=== PATIENT | female | born 1980 | race Caucasian/White ===

== ENCOUNTER 2021-09-05 11:46 | Emergency (ER) | payer OTHER ==
[2021-09-05 12:06] VITALS: RESP 18
[2021-09-05] MEDS ORDERED: PHENAZOPYRIDINE 100 MG TAB PO STA (12:25)
--- NOTE | 2021-09-05 12:28 | ED ---
General Adult HPI - General Chief complaint: Urogenital Stated complaint: blood in urine Time Seen by Provider: 09/05/21 12:15 Source: patient, RN notes reviewed, old records reviewed Mode of arrival: ambulatory Limitations: no limitations - History of Present Illness Initial comments: 41-year-old female presents to the emergency room with complaints of dysuria that started this morning. She states that she is also having some hematuria. She denies any vaginal bleeding states that it is definitely coming from her urethra. She also states it colon when she urinates with just small amounts. She does have a history of anxiety, fibromyalgia, cholecystectomy and hysterectomy. Denies any fevers, no nausea vomiting diarrhea no flank pain. -: days(s) (1) Location: abdomen (suprapubic) Radiation: non-radiation Quality: burning, constant, other (pressure) Improves with: none Associated Symptoms: denies other symptoms - Related Data Previous Rx's Medication Instructions Recorded Cephalexin [Keflex] 500 mg PO Q8HR 7 Days #21 cap 09/05/21 Allergies Allergy/AdvReac Type Severity Reaction Status Date / Time buspirone [From BuSpar] Allergy Hallucinati Verified 09/05/21 12:06 ons Review of Systems ROS Statement: Those systems with pertinent positive or pertinent negative responses have been documented in the HPI. ROS Other: All systems not noted in ROS Statement are negative. Past Medical History Past Medical History: Fibromyalgia History of Any Multi-Drug Resistant Organisms: None Reported Past Surgical History: Cholecystectomy, Hysterectomy, Orthopedic Surgery Past Psychological History: No Psychological Hx Reported, Panic Disorder Smoking Status: Never smoker Past Alcohol Use History: None Reported Past Drug Use History: None Reported General Exam Limitations: no limitations General appearance: alert, in no apparent distress Head exam: Present: atraumatic Eye exam: Absent: scleral icterus, conjunctival injection Respiratory exam: Present: normal lung sounds bilaterally. Absent: respiratory distress, accessory muscle use Cardiovascular Exam: Present: tachycardia GI/Abdominal exam: Present: soft, tenderness (Suprapubic). Absent: distended, guarding, rebound, rigid Extremities exam: Present: full ROM, normal capillary refill. Absent: pedal edema Back exam: Absent: tenderness, CVA tenderness (R), CVA tenderness (L), rash noted Neurological exam: Present: alert, oriented X3, normal gait Psychiatric exam: Present: anxious Skin exam: Present: warm, dry, intact, abrasion (First-degree sunburn to chest and arms and shoulders and upper back). Absent: cyanosis, diaphoretic, pallor Course Vital Signs 09/05/21 09/05/21 11:58 13:40 Temperature 98.0 F 98.2 F Pulse Rate 105 H 91 Respiratory 18 18 Rate Blood Pressure 134/88 124/82 O2 Sat by Pulse 98 100 Oximetry Medical Decision Making - Medical Decision Making Patient with budding yeast and evidence of urinary tract infection. Consistent with patient's dysuria symptoms that started yesterday. She denies any fevers or flank pain. No nausea or vomiting. She was given Diflucan, keflex and pyridium in the emergency room. She will be prescribed antibiotics directed to follow up with her primary care doctor. She is agreeable to this plan of care. - Lab Data Lab Results 09/05/21 Range/Units 12:10 Urine Color Red Urine Appearance Turbid H (Clear) Urine pH 5.5 (5.0-8.0) Ur Specific [place] 1.028 (1.001-1.035) Urine Protein 2+ H (Negative) Urine Glucose (UA) Negative (Negative) Urine Ketones 1+ H (Negative) Urine Blood Large H (Negative) Urine Nitrite Negative (Negative) Urine Bilirubin Negative (Negative) Urine Urobilinogen <2.0 (<2.0) mg/dL Ur Leukocyte Esterase Large H (Negative) Urine RBC >182 H (0-5) /hpf Urine WBC >182 H (0-5) /hpf Urine WBC Clumps Many H (None) /hpf Ur Squamous Epith Cells 6 H (0-4) /hpf Urine Bacteria Many H (None) /hpf Urine Mucus Many H (None) /hpf Urine Yeast (Budding) Many H (None) /hpf Disposition Clinical Impression: Urinary tract infection, Hemorrhagic cystitis Disposition: HOME SELF-CARE Condition: Good Instructions (If sedation given, give patient instructions): Urinary Tract Infection in Women (ED) Additional Instructions: Increase your fluid intake and take antibiotics as prescribed. Follow-up with the primary care doctor next week for reevaluation of your urine. Return to the emergency room if any new or concerning symptoms including fevers, back pain or persistent nausea vomiting. Prescriptions: Cephalexin [Keflex] 500 mg PO Q8HR 7 Days #21 cap Is patient prescribed a controlled substance at d/c from ED?: No Referrals: DIMITRIS TYALOR MD [Primary Care Provider] - 1-2 days Time of Disposition: 13:30
[2021-09-05 12:42] LABS: Appearance,Urine Turbid (Clear); Bacteria,Urine Many /hpf; Bilirubin,Urine Negative (Negative); Blood,Urine Large (Negative); Budding Yeast,Urine Many /hpf; Color,Urine Red; Glucose,Urine (UA) Negative (Negative); Ketones,Urine 1+ (Negative); Leukocyte Esterase,Urine Large (Negative); Mucus,Urine Many /hpf; Nitrite,Urine Negative (Negative); PH, Urine 5.5 (5.0-8.0); Protein,Urine 2+ (Negative); RBC,Urine >182 /hpf (0-5); Squamous Epithelial Cell,Urine 6 /hpf (0-4); Urobilinogen,Urine <2.0 mg/dL (<2.0); WBC,Urine >182 /hpf (0-5)
[2021-09-05 12:47] LABS: Specific Gravity,Urine 1.028 (1.001-1.035)
[2021-09-05] MEDS ORDERED: FLUCONAZOLE 150 MG TAB PO STA (13:28)
[2021-09-05] MEDS ORDERED: CEPHALEXIN 500 MG CAP PO STA (13:28)
[2021-09-05 13:51] VITALS: BP 124/82; PULSE 91; TEMP 98.2
== END 2021-09-05 13:40 | disposition home or self-care (01) ==
LOC: EC 11:46
DX: N39.0 Urinary tract infection, site not specified (principal); F41.0 Panic disorder [episodic paroxysmal anxiety]; Z88.8 Allergy status to other drugs, medicaments and biological substances
CPT/HCPCS: 81001; 87077; 87086; 87186; 99283

== ENCOUNTER 2022-02-04 18:40 | Emergency (ER) | payer OTHER ==
[2022-02-04] MEDS ORDERED: HYDROcodone/APAP 5-325MG 1 EACH TAB PO STA (20:43)
[2022-02-04] MEDS ORDERED: LIDOCAINE 1% INJ 10MG/ML (30 ML VIAL-PF) SQ ONE (20:43)
[2022-02-04] MEDS ORDERED: BACITRACIN OINT 1 EACH PACKET TOPICAL ONE (20:43)
--- NOTE | 2022-02-04 20:48 | ED ---
General Adult HPI - General Chief complaint: Wound/Laceration Stated complaint: Hand Lac Time Seen by Provider: 02/04/22 20:07 Source: patient, RN notes reviewed Mode of arrival: ambulatory Limitations: no limitations - History of Present Illness Initial comments: 41-year-old female presents to the emergency Department with complaints of injury to the right index finger. Patient states she was opening a can of corn when she sliced her finger on the lid. Reports direct pressure was applied in order to control bleeding. States she thinks she is in need of stitches. Tetanus shot is up-to-date. Reports pain with palpation and movement. No loss of sensation or range of motion. No other complaints or injuries at this time. - Related Data Previous Rx's Medication Instructions Recorded Cephalexin [Keflex] 500 mg PO Q8HR 7 Days #21 cap 09/05/21 Allergies Allergy/AdvReac Type Severity Reaction Status Date / Time buspirone [From BuSpar] Allergy Hallucinati Verified 02/04/22 18:58 ons Review of Systems ROS Statement: Those systems with pertinent positive or pertinent negative responses have been documented in the HPI. ROS Other: All systems not noted in ROS Statement are negative. Past Medical History Past Medical History: Fibromyalgia History of Any Multi-Drug Resistant Organisms: None Reported Past Surgical History: Cholecystectomy, Hysterectomy, Orthopedic Surgery Past Psychological History: No Psychological Hx Reported, Anxiety, Panic Disorder Smoking Status: Never smoker Past Alcohol Use History: None Reported Past Drug Use History: None Reported General Exam Limitations: no limitations General appearance: alert, in no apparent distress Respiratory exam: Absent: respiratory distress Cardiovascular Exam: Present: regular rate, normal rhythm Neurological exam: Present: alert, oriented X3, CN II-XII intact Psychiatric exam: Present: normal affect, normal mood Skin exam: Present: warm, dry, normal color Expanded Type of lesion: Present: laceration (1cm linear laceration radial aspect of the 2nd digit, right hand. Flexion and extension intact. No loss of sensation.) Course Vital Signs 02/04/22 02/04/22 18:56 21:34 Temperature 97.9 F 97.8 F Pulse Rate 91 82 Respiratory 20 16 Rate Blood Pressure 121/75 122/73 O2 Sat by Pulse 99 98 Oximetry Procedures - Laceration Laceration #1 Consent Obtained: verbal consent Indication: laceration Site: hand (2nd digit, right hand) Size (cm): 1 Description: linear Depth: simple, single layer Anesthetic Used: lidocaine 1% Anesthesia Technique: nerve block Pre-repair: wound explored, irrigated extensively, deep structures intact Type of Sutures: nylon Size of Sutures: 5-0 Number of Sutures: 2 Technique: simple, interrupted Patient Tolerated Procedure: well, no complications Additional Comments: Wound care discussed with patient. Instructed to follow-up in 72 hours for recheck. Encouraged to have sutures removed in 7-10 days. Return parameters discussed in detail. Patient verbalizes understanding and agrees with plan. Medical Decision Making - Medical Decision Making This is a pleasant 41-year-old female who presents to the emergency department for evaluation of superficial laceration to the second digit and. Patient states she cut her on a can of vegetables. Upon exam there is a 1 centimeter laceration to the radial surface of the second digit of the right hand. Flexion and extension intact. No loss of sensation. Tetanus up to date. Digital block was performed and 2 simple interrupted sutures were placed with good alignment. Bacitracin dressing applied. Tolerated procedure well. She is instructed on wound care including return for suture removal in 7-10 days. Return parameters discussed in detail. Patient verbalizes understanding and agrees with this plan. Attending: Dirk Link Clinical Impression: Finger laceration Disposition: HOME SELF-CARE Condition: Stable Instructions (If sedation given, give patient instructions): Care For Your Stitches (ED), Laceration (ED) Additional Instructions: Gently cleanse the wound twice daily with mild soap and water. Apply antibiotic ointment to wound and keep covered when out of the house. Monitor carefully for signs of infection including increased redness, foul smelling drainage, or fever. Have sutures removed in 7-10 days. Return to the emergency department with any new, worsening, or concerning symptoms. Is patient prescribed a controlled substance at d/c from ED?: No Referrals: Nonstaff,Physician [Primary Care Provider] - 1-2 days Time of Disposition: 21:26
[2022-02-04 21:35] VITALS: BP 122/73; PULSE 82; RESP 16; TEMP 97.8
== END 2022-02-04 21:34 | disposition home or self-care (01) ==
LOC: EC 18:40
DX: S61.210A Laceration without foreign body of right index finger without damage to nail, initial encounter (principal); Z88.8 Allergy status to other drugs, medicaments and biological substances; W26.8XXA Contact with other sharp object(s), not elsewhere classified, initial encounter
CPT/HCPCS: 99282; 12001; J2001

== ENCOUNTER 2022-07-24 01:02 | Emergency (ER) | payer OTHER ==
[2022-07-24 01:22] VITALS: TEMP 97.8
[2022-07-24] MEDS ORDERED: PROCHLORPERAZINE INJ 10 MG/2 ML VIAL IVP STA (02:19)
[2022-07-24] MEDS ORDERED: SODIUM CHLORIDE 0.9% 1,000 ML IV ONE (02:19)
[2022-07-24] MEDS ORDERED: diphenhydrAMINE 50 MG CAP PO STA (02:19)
[2022-07-24] MEDS ORDERED: KETOROLAC 15 MG/ML 1 ML VIAL IVP STA (02:19)
[2022-07-24] MEDS ORDERED: MORPHINE SULFATE 2 MG/ML SYRINGE IVP ONE (03:24)
--- NOTE | 2022-07-24 03:33 | ED ---
General Adult HPI - General Chief complaint: Headache Stated complaint: Migraine, Back Pain Time Seen by Provider: 07/24/22 01:35 Source: patient, RN notes reviewed Mode of arrival: ambulatory Limitations: no limitations - History of Present Illness Initial comments: 42-year-old female with a past medical history significant for fibromyalgia and migraines presents to the emergency department with a chief complaint of headache and generalized body aches. Patient reports worsening bodyaches and headache that started earlier today. 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 She reports that she has been tired taking Tylenol Motrin and Topamax without symptomatic relief. She denies any fevers, chills, chest, vomiting, pain, shortness of breath, abdominal pain, diarrhea. She reports that her headache feels like her regular migraine headaches. - Related Data Previous Rx's Medication Instructions Recorded Cephalexin [Keflex] 500 mg PO Q8HR 7 Days #21 cap 09/05/21 Allergies Allergy/AdvReac Type Severity Reaction Status Date / Time buspirone [From BuSpar] Allergy Hallucinati Verified 07/24/22 01:19 ons methadone Allergy Unknown Verified 07/24/22 01:19 Review of Systems ROS Statement: Those systems with pertinent positive or pertinent negative responses have been documented in the HPI. ROS Other: All systems not noted in ROS Statement are negative. Past Medical History Past Medical History: Fibromyalgia History of Any Multi-Drug Resistant Organisms: None Reported Past Surgical History: Cholecystectomy, Hysterectomy, Orthopedic Surgery Past Psychological History: No Psychological Hx Reported, Anxiety, Panic Disorder Smoking Status: Never smoker Past Alcohol Use History: None Reported Past Drug Use History: None Reported General Exam - General Exam Comments Initial Comments: General: Alert, in no acute distress Head: atraumatic normocephalic. Eyes PERRL, EOMI intact, mucous membranes moist Respiratory: Lungs clear to auscultation bilaterally Cardiovascular: Heart rate regular rate and rhythm Abdominal: Soft without guarding or rebound Extremities: Normal inspection with full range of motion and normal capillary refill Neuroogic: alert and oriented 3, CN II-XII intact, able to ambulate with steady gait Skin: warm dry and intact with normal color Limitations: no limitations Course Vital Signs 07/24/22 07/24/22 01:19 04:31 Temperature 97.8 F Pulse Rate 77 81 Respiratory 18 16 Rate Blood Pressure 123/80 117/70 O2 Sat by Pulse 98 Oximetry Medical Decision Making - Medical Decision Making Was pt. sent in by a medical professional or institution ([employer] Treadwell, SENIOR MEDICAL BILLING SPECIALIST, urgent care, hospital, or halfway...) When possible be specific @ -[No] Did you speak to anyone other than the patient for history (EMS, parent, family, police, friend...)? What history was obtained from this source @ -[No] Did you review nursing and triage notes (agree or disagree)? Why? @ -[I reviewed and agree with nursing and triage notes] Were old charts reviewed (outside hosp., previous admission, EMS record, old EKG, old radiological studies, urgent care reports/EKG's, halfway records)? Report findings @ -[No old charts were reviewed] Differential Diagnosis (chest pain, altered mental status, abdominal pain women, abdominal pain men, vaginal bleeding, weakness, fever, dyspnea, syncope, headache, dizziness, GI bleed, back pain, seizure, CVA, palpatations, mental health, musculoskeletal)? @ -[not applicable] EKG interpreted by me (3pts min.). @ -[As above] X-rays interpreted by me (1pt min.). @ -[None done] CT interpreted by me (1pt min.). @ -[None done] U/S interpreted by me (1pt. min.). @ -[None done] What testing was considered but not performed or refused? (CT, X-rays, U/S, labs)? Why? @ -[None] What meds were considered but not given or refused? Why? @ -[None] Did you discuss the management of the patient with other professionals (professionals i.e. [employer] Treadwell, SENIOR MEDICAL BILLING SPECIALIST, lab, RT, psych nurse, social service director, heliarc welder, teacher, product safety officer, bottle caser)? Give summary @ -[No] Was smoking cessation discussed for >3mins.? @ -[No] Was critical care preformed (if so, how long)? @ -[No] Were there social determinants of health that impacted care today? How? (Homelessness, low income, unemployed, alcoholism, drug addiction, transportation, low edu. Level, literacy, decrease access to med. care, custodial, rehab)? @ -[No] Was there de-escalation of care discussed even if they declined (Discuss DNR or withdrawal of care, Hospice)? DNR status @ -[No] What co-morbidities impacted this encounter? (DM, HTN, Smoking, COPD, CAD, Cancer, CVA, ARF, Chemo, Hep., AIDS, mental health diagnosis, sleep apnea, morbid obesity)? @ -[None] Was patient admitted / discharged? Hospital course, mention meds given and route, prescriptions, significant lab abnormalities, going to OR and other pertinent info. @ -Discharged. This is a 42-year-old female who presents the emergency department with headache. Patient had a thorough history and physical exam performed on the ED. This will exam is essentially unremarkable heart rate regular rate and rhythm, lungs clear to auscultation bilaterally, abdomen is soft and nontender. Patient able to tolerate by mouth during her course in the ED. I discussed results in detail with the patient verbalized understanding and all questions were addressed. Patient was given toradol, morphine, compazine, benadryl with mild symptomatically relief. She return precautions were discussed at length. She was discharged in stable condition, Case discussed with Dr. Roberts, who agrees with plan of care. Undiagnosed new problem with uncertain prognosis? @ -[No] Drug Therapy requiring intensive monitoring for toxicity (Heparin, Nitro, Insulin, Cardizem)? @ -[No] Were any procedures done? @ -[No] Diagnosis/symptom? @ -Headache - hx of migraines Acute, or Chronic, or Acute on Chronic? @ -acute Uncomplicated (without systemic symptoms) or Complicated (systemic symptoms)? @ -uncomplicated Side effects of treatment? @ -[No] Exacerbation, Progression, or Severe Exacerbation? @ -[No] Poses a threat to life or bodily function? How? (Chest pain, [place], [place], pneumonia, PE, COPD, DKA, ARF, appy, cholecystitis, CVA, Diverticulitis, Homicidal, Suicidal, threat to staff... and all critical care pts) @ -low likelihood Disposition Clinical Impression: Headache Disposition: HOME SELF-CARE Condition: Stable Instructions (If sedation given, give patient instructions): Acute Headache (ED) Additional Instructions: Please return to the emergency department if symptoms worsen or persist Is patient prescribed a controlled substance at d/c from ED?: No Referrals: Nonstaff,Physician [Primary Care Provider] - 1-2 days Time of Disposition: 04:14
[2022-07-24 04:33] VITALS: BP 117/70; PULSE 81; RESP 16
== END 2022-07-24 04:33 | disposition home or self-care (01) ==
LOC: EC 01:02
DX: R51.9 Headache, unspecified (principal); Z86.69 Personal history of other diseases of the nervous system and sense organs; Z88.8 Allergy status to other drugs, medicaments and biological substances
CPT/HCPCS: 99283; 96374; 96375 ×2; 96361; J0780; J2270; J1885

== ENCOUNTER 2023-02-05 16:14 | Emergency (ER) | payer OTHER ==
--- NOTE | 2023-02-05 16:39 | ED ---
General Adult HPI - General Source: patient, RN notes reviewed Mode of arrival: ambulatory Limitations: no limitations <Mikki Trinidad - Last Filed: 02/05/23 16:38> <Brice Barcenas - Last Filed: 02/05/23 19:02> - General Chief complaint: Upper Respiratory Infection Stated complaint: sob,chest congestion Time Seen by Provider: 02/05/23 16:38 - History of Present Illness Initial comments: 42-year-old female presenting with chief complaint of "I think I have Covid". Patient admits to cough, shortness of breath, and body aches. (Mikki Trinidad) Patient presents to the ED complaining of having a cough, congestion, diffuse body aches and malaise for the past 3 days or so. Patient states that she developed a fever today. Patient also admits to having mild dyspnea. Patient states that she took a dose of Tylenol just prior to coming to the ED today. Patient denies known sick contact, headache, focal neuro deficit, neck pain or stiffness, sore throat, chest pain, hemoptysis, palpitations, dizziness, abdominal pain, nausea/vomiting/diarrhea, dysuria or urinary symptoms, leg or calf swelling or pain, or any other symptoms or complaints. (Brice Barcenas) - Related Data Previous Rx's Medication Instructions Recorded Cephalexin [Keflex] 500 mg PO Q8HR 7 Days #21 cap 09/05/21 Allergies Allergy/AdvReac Type Severity Reaction Status Date / Time buspirone [From BuSpar] Allergy Hallucinati Verified 02/05/23 16:41 ons methadone Allergy Unknown Verified 02/05/23 16:41 Review of Systems ROS Other: All systems not noted in ROS Statement are negative. <Mikki Trinidad - Last Filed: 02/05/23 16:38> ROS Other: All systems not noted in ROS Statement are negative. <Brice Barcenas - Last Filed: 02/05/23 19:02> ROS Statement: Those systems with pertinent positive or pertinent negative responses have been documented in the HPI. Past Medical History Past Medical History: Fibromyalgia History of Any Multi-Drug Resistant Organisms: None Reported Past Surgical History: Cholecystectomy, Hysterectomy, Orthopedic Surgery Past Psychological History: No Psychological Hx Reported, Anxiety, Panic Disorder Smoking Status: Never smoker Past Alcohol Use History: None Reported Past Drug Use History: None Reported <Mikki Trinidad - Last Filed: 02/05/23 16:38> General Exam <Mikki Trinidad - Last Filed: 02/05/23 16:38> Limitations: no limitations General appearance: alert, in no apparent distress Head exam: Present: normocephalic Eye exam: Present: normal appearance ENT exam: Present: normal oropharynx, mucous membranes moist Neck exam: Present: other (No nuchal rigidity; trachea is in midline). Absent: tenderness, meningismus Respiratory exam: Present: normal lung sounds bilaterally. Absent: respiratory distress, wheezes, rales, rhonchi, stridor Cardiovascular Exam: Present: normal rhythm, tachycardia, normal heart sounds, other (Normal radial pulses bilaterally) GI/Abdominal exam: Present: soft. Absent: tenderness, guarding Extremities exam: Absent: tenderness, pedal edema, calf tenderness Neurological exam: Present: alert, oriented X3 Psychiatric exam: Present: normal affect Skin exam: Present: warm, dry, intact, normal color <Brice Barcenas - Last Filed: 02/05/23 19:02> - General Exam Comments Initial Comments: Visual Physical Exam Vital signs reviewed General: Well-appearing, nontoxic, no acute distress. Head: Normocephalic, atraumatic Eyes: PERRLA, EOMI ENT: Airway patent Chest: Nonlabored breathing Skin: No visual rash, normal skin tone Neuro: Alert and oriented 3 Musculoskeletal: No gross abnormalities (Mikki Trinidad) Course Vital Signs 02/05/23 16:37 Temperature 99.4 F Pulse Rate 122 H Respiratory 18 Rate Blood Pressure 109/79 O2 Sat by Pulse 99 Oximetry Medical Decision Making <Brice Barcenas - Last Filed: 02/05/23 19:02> - Medical Decision Making Was pt. sent in by a medical professional or institution (, PA, BATTERY CONTAINER TESTER ALUMINUM, urgent care, hospital, or custodial...) When possible be specific @ -No Did you speak to anyone other than the patient for history (EMS, parent, family, police, friend...)? What history was obtained from this source @ -No Did you review nursing and triage notes (agree or disagree)? Why? @ -I reviewed and agree with nursing and triage notes Were old charts reviewed (outside hosp., previous admission, EMS record, old EKG, old radiological studies, urgent care reports/EKG's, custodial records)? Report findings @ -No old charts were reviewed Differential Diagnosis (chest pain, altered mental status, abdominal pain women, abdominal pain men, vaginal bleeding, weakness, fever, dyspnea, syncope, headache, dizziness, GI bleed, back pain, seizure, CVA, palpatations, mental health, musculoskeletal)? @ -Fever, upper respiratory infection, viral illness, Covid, influenza, bronchitis, pneumonia, RSV, asthma, bronchospasm, COPD EKG interpreted by me (3pts min.). @ -As above X-rays interpreted by me (1pt min.). @ -Chest x-ray was reviewed myself and shows no acute abnormality. I agree with the radiologist's interpretation as above. CT interpreted by me (1pt min.). @ -None done U/S interpreted by me (1pt. min.). @ -None done What testing was considered but not performed or refused? (CT, X-rays, U/S, labs)? Why? @ -None What meds were considered but not given or refused? Why? @ -None Did you discuss the management of the patient with other professionals (professionals i.e. , PA, BATTERY CONTAINER TESTER ALUMINUM, lab, RT, psych nurse, manager social media, military lawyer, teacher, environmental protection officer, hospice case manager)? Give summary @ -No Was smoking cessation discussed for >3mins.? @ -No Was critical care preformed (if so, how long)? @ -No Were there social determinants of health that impacted care today? How? (Homelessness, low income, unemployed, alcoholism, drug addiction, transportation, low edu. Level, literacy, decrease access to med. care, alf, rehab)? @ -No Was there de-escalation of care discussed even if they declined (Discuss DNR or withdrawal of care, Hospice)? DNR status @ -No What co-morbidities impacted this encounter? (DM, HTN, Smoking, COPD, CAD, Cancer, CVA, ARF, Chemo, Hep., AIDS, mental health diagnosis, sleep apnea, morbid obesity)? @ -None Was patient admitted / discharged? Hospital course, mention meds given and route, prescriptions, significant lab abnormalities, going to OR and other pertinent info. @ -She is breathing comfortably in the ED with clear breath sounds bilaterally. Patient's chest x-ray is unremarkable. Patient's viral studies are negative. I suspect that the patient's symptoms are likely due to a viral upper respiratory infection. Will discharge patient home at this time with strict return instructions provided. Patient was instructed to follow up closely with her primary care provider. Patient was also counseled about isolation precautions, and she was provided with a work excuse note. Patient was counseled about fever control and upper respiratory infections, and she was clearly explained return and follow-up instructions. Patient feels comfortable with this plan. Undiagnosed new problem with uncertain prognosis? @ -No Drug Therapy requiring intensive monitoring for toxicity (Heparin, Nitro, Insulin, Cardizem)? @ -No Were any procedures done? @ -No Diagnosis/symptom? @ -Viral upper respiratory infection Acute, or Chronic, or Acute on Chronic? @ -Acute Uncomplicated (without systemic symptoms) or Complicated (systemic symptoms)? @ -default Side effects of treatment? @ -No Exacerbation, Progression, or Severe Exacerbation? @ -No Poses a threat to life or bodily function? How? (Chest pain, [place], [place], pneumonia, PE, COPD, DKA, ARF, appy, cholecystitis, CVA, Diverticulitis, Homicidal, Suicidal, threat to staff... and all critical care pts) @ -No (Brice Barcenas) - Lab Data Lab Results 02/05/23 Range/Units 16:42 Influenza Type A (PCR) Not Detected (Not Detectd) Influenza Type B (PCR) Not Detected (Not Detectd) RSV (PCR) Not Detected (Not Detectd) SARS-CoV-2 (PCR) Not Detected (Not Detectd) - Radiology Data Chest x-ray: No acute cardiopulmonary disease/process. (Brice Barcenas) Disposition <Mikki Trinidad - Last Filed: 02/05/23 16:38> Is patient prescribed a controlled substance at d/c from ED?: No Time of Disposition: 18:59 <Brice Barcenas - Last Filed: 02/05/23 19:02> Clinical Impression: Acute febrile illness, Upper respiratory infection Disposition: HOME SELF-CARE Condition: Stable Instructions (If sedation given, give patient instructions): Fever in Adults (ED), Upper Respiratory Infection (ED) Additional Instructions: Return to the ER immediately should you develop increased shortness of breath/trouble breathing, feeling dizzy or faint, or any significant pain, or new or worsening symptoms. Follow up closely with your primary care provider. Referrals: Rebecca Quinonez NPC [Primary Care Provider] - 1-2 days
[2023-02-05 16:48] VITALS: BP 109/79; PULSE 122; RESP 18; TEMP 99.4
--- NOTE | 2023-02-05 16:58 | XR ---
EXAMINATION TYPE: XR chest 2V DATE OF EXAM: 02/05/2023 4:52 PM CLINICAL INDICATION:Female, 42 years old with history of cough; [facility] COMPARISON: None. TECHNIQUE: XR chest 2V Frontal and lateral views of the chest. FINDINGS: Lungs/Pleura: There is no evidence of pleural effusion, focal consolidation, or pneumothorax. Pulmonary vascularity: Unremarkable. Heart/mediastinum: Cardiomediastinal silhouette is unremarkable. Musculoskeletal: No acute osseous pathology. IMPRESSION: No acute cardiopulmonary disease/process.
== END 2023-02-05 19:38 | disposition home or self-care (01) ==
LOC: EC 16:14
DX: J06.9 Acute upper respiratory infection, unspecified (principal); Z90.49 Acquired absence of other specified parts of digestive tract; Z88.8 Allergy status to other drugs, medicaments and biological substances; Z20.822 Contact with and (suspected) exposure to COVID-19; Z86.59 Personal history of other mental and behavioral disorders
CPT/HCPCS: 71046; 87636; 99283

== ENCOUNTER 2023-03-23 15:14 | Emergency (ER) | payer OTHER ==
--- NOTE | 2023-03-23 16:15 | ED ---
URI HPI - General Chief Complaint: Upper Respiratory Infection Stated Complaint: GALILEA Time Seen by Provider: 03/23/23 16:14 Source: patient Mode of arrival: ambulatory Limitations: no limitations - History of Present Illness Initial Comments: 43-year-old female presenting with chief complaint of cough and shortness of breath. Patient states that over the last 2 months she has been diagnosed with Covid, bronchitis, and pneumonia. 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 Denies chest pain or palpita tions. Denies nausea, vomiting, abdominal pain, diarrhea. No fevers or chills. She was advised to report to the ER by her PCP as she has been on multiple courses of antibiotics and steroids. - Related Data Previous Rx's Medication Instructions Recorded Cephalexin [Keflex] 500 mg PO Q8HR 7 Days #21 cap 09/05/21 Albuterol Sulfate [Albuterol 1 puff PO Q4-6H #8.5 gm 03/23/23 Sulfate Hfa] predniSONE [Deltasone] 60 mg PO DAILY 5 Days #15 tab 03/23/23 Allergies Allergy/AdvReac Type Severity Reaction Status Date / Time buspirone [From BuSpar] Allergy Hallucinati Verified 03/23/23 16:13 ons methadone Allergy Unknown Verified 03/23/23 16:13 Review of Systems ROS Statement: Those systems with pertinent positive or pertinent negative responses have been documented in the HPI. ROS Other: All systems not noted in ROS Statement are negative. Past Medical History Past Medical History: Fibromyalgia History of Any Multi-Drug Resistant Organisms: None Reported Past Surgical History: Cholecystectomy, Hysterectomy, Orthopedic Surgery Past Psychological History: No Psychological Hx Reported, Anxiety, Panic Disorder Smoking Status: Never smoker Past Alcohol Use History: None Reported Past Drug Use History: None Reported General Exam - General Exam Comments Initial Comments: Visual Physical Exam Vital signs reviewed General: Well-appearing, nontoxic, no acute distress. Head: Normocephalic, atraumatic Eyes: PERRLA, EOMI ENT: Airway patent Chest: Nonlabored breathing Skin: No visual rash, normal skin tone Neuro: Alert and oriented 3 Musculoskeletal: No gross abnormalities Limitations: no limitations General appearance: alert, in no apparent distress Head exam: Present: atraumatic, normocephalic Eye exam: Present: normal appearance, EOMI Neck exam: Present: normal inspection Respiratory exam: Present: wheezes (Slight expiratory wheezes heard on auscultation). Absent: respiratory distress, rales, rhonchi, stridor Cardiovascular Exam: Present: regular rate, normal rhythm, normal heart sounds. Absent: systolic murmur, diastolic murmur, rubs, gallop, clicks Neurological exam: Present: alert, oriented X3 Psychiatric exam: Present: normal affect, normal mood Skin exam: Present: warm, dry Course Vital Signs 03/23/23 03/23/23 03/23/23 16:11 19:28 19:30 Temperature 98.0 F Pulse Rate 67 67 Respiratory 16 20 Rate Blood Pressure 132/89 O2 Sat by Pulse 96 Oximetry 03/23/23 03/23/23 19:37 20:10 Temperature 98.0 F Pulse Rate 67 76 Respiratory 20 Rate Blood Pressure 136/58 O2 Sat by Pulse 98 Oximetry Medical Decision Making - Medical Decision Making Was pt. sent in by a medical professional or institution (, PA, RECTIFIER OPERATOR, urgent care, hospital, or usp...) When possible be specific @ -No Did you speak to anyone other than the patient for history (EMS, parent, family, police, friend...)? What history was obtained from this source @ -No Did you review nursing and triage notes (agree or disagree)? Why? @ -I reviewed and agree with nursing and triage notes Were old charts reviewed (outside hosp., previous admission, EMS record, old EKG, old radiological studies, urgent care reports/EKG's, usp records)? Report findings @ -No old charts were reviewed Differential Diagnosis (chest pain, altered mental status, abdominal pain women, abdominal pain men, vaginal bleeding, weakness, fever, dyspnea, syncope, headache, dizziness, GI bleed, back pain, seizure, CVA, palpatations, mental health, musculoskeletal)? @ -MDM Differential Dyspnea: Coronary syndrome, arrhythmia, tamponade, asthma, COPD, pulmonary embolism, pneumonia, pneumothorax, pulmonary effusion, anaphylaxis, diabetic ketoacidosis, flailed chest, pulmonary contusion, diaphragmatic rupture, anemia, neuromuscular this is not meant to be an all-inclusive list. EKG interpreted by me (3pts min.). @ -As above X-rays interpreted by me (1pt min.). @ -Chest x-ray shows no acute cardiopulmonary process CT interpreted by me (1pt min.). @ -None done U/S interpreted by me (1pt. min.). @ -None done What testing was considered but not performed or refused? (CT, X-rays, U/S, labs)? Why? @ -None What meds were considered but not given or refused? Why? @ -None Did you discuss the management of the patient with other professionals (professionals i.e. DrMarina, PA, RECTIFIER OPERATOR, lab, RT, psych nurse, manager social responsibility, hunting sales leader, teacher, classification officer, immigration case worker)? Give summary @ -No Was smoking cessation discussed for >3mins.? @ -No Was critical care preformed (if so, how long)? @ -No Were there social determinants of health that impacted care today? How? (Homelessness, low income, unemployed, alcoholism, drug addiction, transportation, low edu. Level, literacy, decrease access to med. care, detention, rehab)? @ -No Was there de-escalation of care discussed even if they declined (Discuss DNR or withdrawal of care, Hospice)? DNR status @ -No What co-morbidities impacted this encounter? (DM, HTN, Smoking, COPD, CAD, Cancer, CVA, ARF, Chemo, Hep., AIDS, mental health diagnosis, sleep apnea, morbid obesity)? @ -None Was patient admitted / discharged? Hospital course, mention meds given and route, prescriptions, significant lab abnormalities, going to OR and other pertinent info. @ -43-year-old female presenting with chief complaint of cough and shortness of breath. Recently exposed to RSV. History and physical exam were conducted. There are very slight expiratory wheezes heard on auscultation. Patient is positive for RSV. Chest x-ray shows no acute process. Vital signs are WNL. Patient was educated on today's findings. She will be treated with DuoNeb and prednisone 60 mg here in the ER, sent prescription for prednisone 60mg QD x5days and albuterol inhaler refill. Follow-up with PCP. Report back to ER with any new or worsening symptoms. Discussed return parameters and answered all questions. Patient conveyed verbal understanding and agreed to the plan. I discussed this case in detail with my attending Dr. Quevedo Undiagnosed new problem with uncertain prognosis? @ -No Drug Therapy requiring intensive monitoring for toxicity (Heparin, Nitro, Insulin, Cardizem)? @ -No Were any procedures done? @ -No Diagnosis/symptom? @ -RSV Acute, or Chronic, or Acute on Chronic? @ -Acute Uncomplicated (without systemic symptoms) or Complicated (systemic symptoms)? @ -Uncomplicated Side effects of treatment? @ -No Exacerbation, Progression, or Severe Exacerbation? @ -No Poses a threat to life or bodily function? How? (Chest pain, [place], [place], pneumonia, PE, COPD, DKA, ARF, appy, cholecystitis, CVA, Diverticulitis, Homicidal, Suic idal, threat to staff... and all critical care pts) @ -No - Lab Data Lab Results 03/23/23 Range/Units 16:16 Influenza Type A (PCR) Not Detected (Not Detectd) Influenza Type B (PCR) Not Detected (Not Detectd) RSV (PCR) Detected A (Not Detectd) SARS-CoV-2 (PCR) Not Detected (Not Detectd) Disposition Clinical Impression: RSV (respiratory syncytial virus infection) Disposition: HOME SELF-CARE Condition: Good Instructions (If sedation given, give patient instructions): Respiratory Syncytial Virus (ED) Additional Instructions: Follow-up with PCP. Report back to ER if any new or worsening symptoms. Prescriptions: Albuterol Sulfate [Albuterol Sulfate Hfa] 1 puff PO Q4-6H #8.5 gm predniSONE [Deltasone] 60 mg PO DAILY 5 Days #15 tab Is patient prescribed a controlled substance at d/c from ED?: No Referrals: Mikayla England MD [Primary Care Provider] - 1-2 days Time of Disposition: 18:45
[2023-03-23 16:35] VITALS: TEMP 98
--- NOTE | 2023-03-23 17:09 | XR ---
EXAMINATION TYPE: XR chest 2V DATE OF EXAM: 03/23/2023 COMPARISON: 02/05/2023 HISTORY: Shortness of breath and cough TECHNIQUE: Frontal and lateral views of the chest are obtained. FINDINGS: There is no focal air space opacity, pleural effusion, or pneumothorax seen. The cardiac silhouette size is within normal limits. The osseous structures are intact. IMPRESSION: No acute cardiopulmonary process.
[2023-03-23] MEDS ORDERED: predniSONE 20 MG TAB PO STA (18:46)
[2023-03-23] MEDS ORDERED: IPRATROPIUM-ALBUTEROL 3 ML NEB INHALATION STA (18:54)
[2023-03-23 20:53] VITALS: BP 136/58; PULSE 76; RESP 20
== END 2023-03-23 20:10 | disposition home or self-care (01) ==
LOC: EC 15:14
DX: R06.02 Shortness of breath (principal); R06.2 Wheezing; B97.4 Respiratory syncytial virus as the cause of diseases classified elsewhere; Z20.822 Contact with and (suspected) exposure to COVID-19; Z88.8 Allergy status to other drugs, medicaments and biological substances
CPT/HCPCS: 94640; 87636; 71046; 99285; J7512

== ENCOUNTER 2023-10-03 23:33 | Emergency (ER) | payer OTHER ==
[2023-10-04] MEDS: ONDANSETRON 4 MG/2 ML VIAL IVP STA (00:37)
[2023-10-04] MEDS: KETOROLAC 15 MG/ML 1 ML VIAL IVP STA (00:40)
[2023-10-04] MEDS: SODIUM CHLORIDE 0.9% 1,000 ML IV ONE (00:40)
[2023-10-04] MEDS: HYDROmorphone 0.5 MG/0.5 ML SYRINGE IVP STA (00:42)
[2023-10-04 00:50] LABS: Basophils # (A) 0.1 k/uL (0-0.2); Basophils % (A) 1 %; Eosinophils # (A) 0.2 k/uL (0-0.7); Eosinophils % (A) 2 %; HGB 14.2 gm/dL (11.4-16.0); Lymphocytes # (A) 3.9 k/uL (1.0-4.8); Lymphocytes % (A) 34 %; MCH 28.6 pg (25.0-35.0); MCHC 32.9 g/dL (31.0-37.0); MCV 86.9 fL (80.0-100.0); Mean Platelet Volume 7.4; Monocytes # (A) 0.6 k/uL (0-1.0); Monocytes % (A) 6 %; Neutrophils # (A) 6.7 k/uL (1.3-7.7); Neutrophils % (A) 58 %; Platelet Count 324 k/uL (150-450); RBC 4.95 m/uL (3.80-5.40); RDW 13.6 % (11.5-15.5); WBC 11.7 k/uL (3.8-10.6)
[2023-10-04 01:07] LABS: ALT 20 U/L (4-34); AST 28 U/L (14-36); African American GFR (CKD) >90 (>60 ml/min/1.73 sqM); Albumin 4.3 g/dL (3.5-5.0); Alkaline Phosphatase 65 U/L (38-126); Anion Gap 6 mmol/L; Blood Urea Nitrogen 10 mg/dL (7-17); Calcium 9.2 mg/dL (8.4-10.2); Carbon Dioxide 25 mmol/L (22-30); Chloride 109 mmol/L (98-107); Glucose 106 mg/dL (74-99); Non-African American GFR(CKD) 89 (>60 ml/min/1.73 sqM); Potassium 3.8 mmol/L (3.5-5.1); Sodium 140 mmol/L (137-145); Total Bilirubin 0.4 mg/dL (0.2-1.3); Total Protein 6.9 g/dL (6.3-8.2)
[2023-10-04 01:37] LABS: Appearance,Urine Cloudy (Clear); Bacteria,Urine Rare /hpf; Bilirubin,Urine Negative (Negative); Blood,Urine Small (Negative); Color,Urine Yellow; Glucose,Urine (UA) Negative (Negative); Ketones,Urine Negative (Negative); Leukocyte Esterase,Urine Large (Negative); Mucus,Urine Occasional /hpf; Nitrite,Urine Negative (Negative); PH, Urine 6.5 (5.0-8.0); Protein,Urine 1+ (Negative); RBC,Urine 45 /hpf (0-5); Specific Gravity,Urine 1.031 (1.001-1.035); Squamous Epithelial Cell,Urine 6 /hpf (0-4); WBC,Urine >182 /hpf (0-5)
--- NOTE | 2023-10-04 02:06 | ED ---
Female Urogenital HPI - General Chief complaint: Urogenital Stated complaint: UTI Time Seen by Provider: 10/04/23 00:10 Source: patient Mode of arrival: ambulatory Limitations: no limitations - History of Present Illness Initial comments: 43-year-old female present with chief complaint of dysuria. Symptoms have been worsening over the last 2 days. She also admits to nausea and vomiting. Admits to bilateral lower back pain. Admits to hematuria. Denies fever, states that she has not taken her temperature but has not felt as though she has had a feve r. No diarrhea or hematochezia. No flank pain. No chest pain or difficulty breathing - Related Data Previous Rx's Medication Instructions Recorded Cephalexin [Keflex] 500 mg PO Q8HR 7 Days #21 cap 09/05/21 Albuterol Sulfate [Albuterol 1 puff PO Q4-6H #8.5 gm 03/23/23 Sulfate Hfa] predniSONE [Deltasone] 60 mg PO DAILY 5 Days #15 tab 03/23/23 Cephalexin [Keflex] 500 mg PO Q12HR 10 Days #20 cap 10/04/23 Allergies Allergy/AdvReac Type Severity Reaction Status Date / Time buspirone [From BuSpar] Allergy Hallucinati Verified 10/04/23 00:08 ons methadone Allergy Unknown Verified 10/04/23 00:08 Review of Systems ROS Statement: Those systems with pertinent positive or pertinent negative responses have been documented in the HPI. ROS Other: All systems not noted in ROS Statement are negative. Past Medical History Past Medical History: Fibromyalgia History of Any Multi-Drug Resistant Organisms: None Reported Past Surgical History: Cholecystectomy, Hysterectomy, Orthopedic Surgery Past Psychological History: No Psychological Hx Reported, Anxiety, Panic Disorder Smoking Status: Never smoker Past Alcohol Use History: None Reported Past Drug Use History: None Reported General Exam Limitations: no limitations General appearance: alert, in no apparent distress Head exam: Present: atraumatic, normocephalic Eye exam: Present: normal appearance, EOMI Neck exam: Present: normal inspection. Absent: meningismus Respiratory exam: Absent: respiratory distress Cardiovascular Exam: Present: regular rate GI/Abdominal exam: Present: soft. Absent: distended, tenderness, guarding, rebound, rigid Neurological exam: Present: alert, oriented X3 Psychiatric exam: Present: normal affect, normal mood Skin exam: Present: warm, dry, normal color Course Vital Signs 10/04/23 10/04/23 00:05 02:37 Temperature 97.9 F 98.0 F Pulse Rate 85 82 Respiratory 20 18 Rate Blood Pressure 106/71 119/77 O2 Sat by Pulse 100 98 Oximetry Medical Decision Making - Medical Decision Making Was pt. sent in by a medical professional or institution (, PA, [employer], urgent care, hospital, or senior care...) When possible be specific @ -No Did you speak to anyone other than the patient for history (EMS, parent, family, police, friend...)? What history was obtained from this source @ -No Did you review nursing and triage notes (agree or disagree)? Why? @ -I reviewed and agree with nursing and triage notes Were old charts reviewed (outside hosp., previous admission, EMS record, old EKG, old radiological studies, urgent care reports/EKG's, senior care records)? Report findings @ -No old charts were reviewed Differential Diagnosis (chest pain, altered mental status, abdominal pain women, abdominal pain men, vaginal bleeding, weakness, fever, dyspnea, syncope, headache, dizziness, GI bleed, back pain, seizure, CVA, palpatations, mental health, musculoskeletal)? @ -Differential includes UTI, pyelonephritis, kidney stone, interstitial cystitis, this is not an all-inclusive list EKG interpreted by me (3pts min.). @ -As above X-rays interpreted by me (1pt min.). @ -None done CT interpreted by me (1pt min.). @ -None done U/S interpreted by me (1pt. min.). @ -None done What testing was considered but not performed or refused? (CT, X-rays, U/S, labs)? Why? @ -CT was considered to rule out kidney stone, however the patient only has 45 RBCs and is having no flank pain, septic stone seems unlikely at this time and to avoid further radiation CT was foregone What meds were considered but not given or refused? Why? @ -None Did you discuss the management of the patient with other professionals (professionals i.e. , [employer], [employer], lab, RT, psych nurse, director of social work, wire threader, teacher, grant officer, casework supervisor)? Give summary @ -No Was smoking cessation discussed for >3mins.? @ -No Was critical care preformed (if so, how long)? @ -No Were there social determinants of health that impacted care today? How? (Homel essness, low income, unemployed, alcoholism, drug addiction, transportation, low edu. Level, literacy, decrease access to med. care, penitentiary, rehab)? @ -No Was there de-escalation of care discussed even if they declined (Discuss DNR or withdrawal of care, Hospice)? DNR status @ -No What co-morbidities impacted this encounter? (DM, HTN, Smoking, COPD, CAD, Cancer, CVA, ARF, Chemo, Hep., AIDS, mental health diagnosis, sleep apnea, morbid obesity)? @ -None Was patient admitted / discharged? Hospital course, mention meds given and route, prescriptions, significant lab abnormalities, going to OR and other pertinent info. @ -43-year-old female presenting with chief complaint of dysuria hematuria and lower back discomfort. History and physical exam are conducted. WBC 11.7. Urine shows large leukocytes with greater than 182 WBCs, other small blood with 45 RBCs. Patient is having no distinct flank pain. She will be treated for UTI. She is given 1 g IV Rocephin here in the ER and is sent home on Keflex 500 twice daily for 10 days. Discharged home. Follow-up with PCP. Report back to ER with any new or worsening symptoms. Discussed return parameters and answered all questions. Patient conveyed verbal understanding and agreed to the plan. I discussed this case in detail with my attending Dr. Barton Undiagnosed new problem with uncertain prognosis? @ -No Drug Therapy requiring intensive monitoring for toxicity (Heparin, Nitro, Insulin, Cardizem)? @ -No Were any procedures done? @ -No Diagnosis/symptom? @ -UTI Acute, or Chronic, or Acute on Chronic? @ -Acute Uncomplicated (without systemic symptoms) or Complicated (systemic symptoms)? @ -Uncomplicated Side effects of treatment? @ -No Exacerbation, Progression, or Severe Exacerbation? @ -No Poses a threat to life or bodily function? How? (Chest pain, USA, NC, pneumonia, PE, COPD, DKA, ARF, appy, cholecystitis, CVA, Diverticulitis, Homicidal, Suicidal, threat to staff... and all critical care pts) @ -Unlikely at this time - Lab Data Result diagrams: 10/04/23 00:42 10/04/23 00:42 Lab Results 10/04/23 10/04/23 10/04/23 Range/Units 00:42 00:42 00:42 WBC 11.7 H (3.8-10.6) k/uL RBC 4.95 (3.80-5.40) m/uL Hgb 14.2 (11.4-16.0) gm/dL Hct 43.0 (34.0-46.0) % MCV 86.9 (80.0-100.0) fL MCH 28.6 (25.0-35.0) pg MCHC 32.9 (31.0-37.0) g/dL RDW 13.6 (11.5-15.5) % Plt Count 324 (150-450) k/uL MPV 7.4 Neutrophils % 58 % Lymphocytes % 34 % Monocytes % 6 % Eosinophils % 2 % Basophils % 1 % Neutrophils # 6.7 (1.3-7.7) k/uL Lymphocytes # 3.9 (1.0-4.8) k/uL Monocytes # 0.6 (0-1.0) k/uL Eosinophils # 0.2 (0-0.7) k/uL Basophils # 0.1 (0-0.2) k/uL Sodium 140 (137-145) mmol/L Potassium 3.8 (3.5-5.1) mmol/L Chloride 109 H (98-107) mmol/L Carbon Dioxide 25 (22-30) mmol/L Anion Gap 6 mmol/L BUN 10 (7-17) mg/dL Creatinine 0.81 (0.52-1.04) mg/dL Est GFR (CKD-EPI)AfAm >90 (>60 ml/min/1.73 sqM) Est GFR (CKD-EPI)NonAf 89 (>60 ml/min/1.73 sqM) Glucose 106 H (74-99) mg/dL Plasma Lactic Acid Sonido 1.2 (0.7-2.0) mmol/L Calcium 9.2 (8.4-10.2) mg/dL Total Bilirubin 0.4 (0.2-1.3) mg/dL AST 28 (14-36) U/L ALT 20 (4-34) U/L Alkaline Phosphatase 65 (38-126) U/L Total Protein 6.9 (6.3-8.2) g/dL Albumin 4.3 (3.5-5.0) g/dL Urine Color Urine Appearance (Clear) Urine pH (5.0-8.0) Ur Specific Bradford (1.001-1.035) Urine Protein (Negative) Urine Glucose (UA) (Negative) Urine Ketones (Negative) Urine Blood (Negative) Urine Nitrite (Negative) Urine Bilirubin (Negative) Urine Urobilinogen (<2.0) mg/dL Ur Leukocyte Esterase (Negative) Urine RBC (0-5) /hpf Urine WBC (0-5) /hpf Urine WBC Clumps (None) /hpf Ur Squamous Epith Cells (0-4) /hpf Urine Bacteria (None) /hpf Urine Mucus (None) /hpf 10/04/23 Range/Units 01:20 WBC (3.8-10.6) k/uL RBC (3.80-5.40) m/uL Hgb (11.4-16.0) gm/dL Hct (34.0-46.0) % MCV (80.0-100.0) fL MCH (25.0-35.0) pg MCHC (31.0-37.0) g/dL RDW (11.5-15.5) % Plt Count (150-450) k/uL MPV Neutrophils % % Lymphocytes % % Monocytes % % Eosinophils % % Basophils % % Neutrophils # (1.3-7.7) k/uL Lymphocytes # (1.0-4.8) k/uL Monocytes # (0-1.0) k/uL Eosinophils # (0-0.7) k/uL Basophils # (0-0.2) k/uL Sodium (137-145) mmol/L Potassium (3.5-5.1) mmol/L Chloride (98-107) mmol/L Carbon Dioxide (22-30) mmol/L Anion Gap mmol/L BUN (7-17) mg/dL Creatinine (0.52-1.04) mg/dL Est GFR (CKD-EPI)AfAm (>60 ml/min/1.73 sqM) Est GFR (CKD-EPI)NonAf (>60 ml/min/1.73 sqM) Glucose (74-99) mg/dL Plasma Lactic Acid Sonido (0.7-2.0) mmol/L Calcium (8.4-10.2) mg/dL Total Bilirubin (0.2-1.3) mg/dL AST (14-36) U/L ALT (4-34) U/L Alkaline Phosphatase (38-126) U/L Total Protein (6.3-8.2) g/dL Albumin (3.5-5.0) g/dL Urine Color Yellow Urine Appearance Cloudy H (Clear) Urine pH 6.5 (5.0-8.0) Ur Specific Bradford 1.031 (1.001-1.035) Urine Protein 1+ H (Negative) Urine Glucose (UA) Negative (Negative) Urine Ketones Negative (Negative) Urine Blood Small H (Negative) Urine Nitrite Negative (Negative) Urine Bilirubin Negative (Negative) Urine Urobilinogen 2.0 (<2.0) mg/dL Ur Leukocyte Esterase Large H (Negative) Urine RBC 45 H (0-5) /hpf Urine WBC >182 H (0-5) /hpf Urine WBC Clumps Occasional H (None) /hpf Ur Squamous Epith Cells 6 H (0-4) /hpf Urine Bacteria Rare H (None) /hpf Urine Mucus Occasional H (None) /hpf Disposition Clinical Impression: Urinary tract infection Disposition: HOME SELF-CARE Condition: Good Instructions (If sedation given, give patient instructions): Urinary Tract Infection in Women (ED) Additional Instructions: Follow-up with PCP. Report back to ER with any new or worsening symptoms. Prescriptions: Cephalexin [Keflex] 500 mg PO Q12HR 10 Days #20 cap Is patient prescribed a controlled substance at d/c from ED?: No Referrals: Mikayla England MD [Primary Care Provider] - 1-2 days Time of Disposition: 02:05
[2023-10-04] MEDS: METOCLOPRAMIDE 5 MG/ML 2 ML VIAL IVP STA (02:17)
[2023-10-04] MEDS: cefTRIAXone IN SWFI 1,000 MG/10 ML SYRINGE IVP STA (02:20)
[2023-10-04 02:38] VITALS: BP 119/77; PULSE 82; RESP 18; TEMP 98
== END 2023-10-04 02:38 | disposition home or self-care (01) ==
LOC: EC 23:33
DX: N39.0 Urinary tract infection, site not specified (principal); Z88.8 Allergy status to other drugs, medicaments and biological substances; Z90.49 Acquired absence of other specified parts of digestive tract
CPT/HCPCS: 99283; 96374; 96375 ×3; 96361 ×2; 36415; 80053; 83605; 85025; 81001; 87086; J2765; J2405; J0696; J1885; J1170

== ENCOUNTER → 2024-02-15 | Outpatient (CLI) | payer OTHER ==
[2024-02-15 14:29] VITALS: BP 109/75; PULSE 88; RESP 16; TEMP 98.1
--- NOTE | 2024-02-15 15:47 | P.SLEEP ---
History of Present Illness DATE: 02/15/2024 CONSULTATION/NEW PATIENT EVALUATION HISTORY OF PRESENT ILLNESS/SLEEP-WAKE EVALUATION: 43-year-old lady had been evaluated in the sleep center for possible obstructive sleep apnea hypopnea syndrome. SLEEP SCHEDULE: Usually sleep schedule from 10 PM to 7:30 AM on weekdays and from 8 PM to 8 AM on weekend. FALLING ASLEEP: Sometimes patient has difficulties with falling asleep, although no TV in bedroom. DURING SLEEP: Patient usually sleeps on the side position with loud snoring and awakenings from sleep after 4 times with 3 episodes of nocturia. Positive history of sleep apnea in the past. Positive history of grinding teeth, panic attacks, palpitations, restless leg symptoms and sweating. No history of hypnogogical hallucinations, sleep paralysis, or cataplexy. DURING THE DAY/WAKE STATE: In the morning patient wake up tired, has difficulties to pay attention, falling asleep during the day. Patient has problems with memory, concentration, irritability, depression, anxiety.. [place] sleepiness scale is significantly increased to 14. Patient may take naps afternoon. PAST MEDICAL HISTORY: Anxiety. PAST SURGICAL HISTORY: Total hysterectomy, ankle stabilization. MEDICATIONS: Have been reviewed, please see below. SOCIAL HISTORY: Please see below. FAMILY HISTORY: Please see below. REVIEW OF SYSTEMS: Loud snoring, multiple awakenings from sleep, sleepiness during the day. No fevers. No double vision. No recent chest pain. No shortness of breath. No abdominal pain. No bleeding episodes. No blood in urine. No seizure episodes. PHYSICAL EXAMINATION: GENERAL: A pleasant patient without any distress. VITAL SIGNS: Please see below weight 239 pounds, BMI 40.3. HEENT: PERRLA, EOMI. Evaluation of oropharynx showed tongue protrudes midline, low position of soft palate Mallampati 23, big uvula. NECK: Supple. No JVD. Thyroid is not palpable. 14.5 inches in circumference. LUNGS: Clear to percussion and to auscultation. Good air exchange. No wheezing or rhonchi. HEART: S1, S2 regular. No murmurs, gallops or rubs. ABDOMEN: Soft and nontender. Bowel sounds are present. No organomegaly appreciated. EXTREMITIES: No clubbing or cyanosis. SERVICE SPECIALIST: Awake, alert, and oriented x3. Cranial nerves 2 to 7 intact. There is no fasciculation or atrophy noted. No focal deficits observed. ASSESSMENT: 1. Loud snoring, witnessed episodes of stop breathing during the sleep, small oropharyngeal airspace, sleepiness with high [place] Sleepiness Scale of 14. Obstructive sleep apnea hypopnea syndrome. 2. Significant excessive daytime sleepiness with [place] Sleepiness Scale 14 and not feeling refreshed after 12 hours of sleep dictate necessity to include idiopathic hypersomnia in differential diagnosis. 3. Significant amount of movements during the sleep, possibly periodic limb movements. 4. Obesity, BMI 40.3. 5 anxiety. 6 . Status post total hysterectomy. 7. Status post ankle stabilization procedure. PLAN: 1. Polysomnography for evaluation of patient's breathing during sleep. 2. Following plan after reading sleep study. 3. Preferable position during sleep on the side. 4. No driving if patient feels any sleepiness. Patient is aware of civil and criminal liability for unsafe driving. 5. Sleep hygiene with regular sleep time for at least 7.5-8 hours. 6. Watching and losing weight. Thank you very much for referring this patient for consultation. Sincerely, Arturo Platt MD, PhD, FAASM. Diplomat of [place] [employer], Sleep Medicine Board by [place] [employer] [employer] Maintenance Helper [facility] [place] cc: Mikayla England MD Past Medical History Past Medical History: Asthma, Cancer, Diabetes Mellitus, Fibromyalgia, Rheumatoid Arthritis (RA) Additional Past Medical History / Comment(s): HEADACHES History of Any Multi-Drug Resistant Organisms: None Reported Past Surgical History: Cholecystectomy, Hysterectomy, Orthopedic Surgery Past Anesthesia/Blood Transfusion Reactions: No Reported Reaction Past Psychological History: No Psychological Hx Reported, Anxiety, Panic Dis order Smoking Status: Never smoker Past Alcohol Use History: None Reported Past Drug Use History: None Reported - Past Family History Mother Family Medical History: Cancer, Diabetes Mellitus, Hypertension Father Family Medical History: Hypertension Medications and Allergies Home Medications Medication Instructions Recorded Confirmed Type Cephalexin [Keflex] 500 mg PO Q8HR 7 Days #21 cap 09/05/21 Rx Albuterol Sulfate [Albuterol 1 puff PO Q4-6H #8.5 gm 03/23/23 Rx Sulfate Hfa] predniSONE [Deltasone] 60 mg PO DAILY 5 Days #15 tab 03/23/23 Rx Cephalexin [Keflex] 500 mg PO Q12HR 10 Days #20 cap 10/04/23 Rx Cyclobenzaprine HCl 7.5 mg PO DAILY 02/15/24 02/15/24 History Cyclobenzaprine [Flexeril] 02/15/24 History Escitalopram [Lexapro] 20 mg PO DAILY 02/15/24 02/15/24 History Meloxicam [Mobic] 15 mg PO DAILY 02/15/24 02/15/24 History Prazosin HCl [Minipress] 2 mg PO HS 02/15/24 02/15/24 History clonazePAM [KlonoPIN] 1 mg PO BID 02/15/24 02/15/24 History lamoTRIgine [LaMICtal] 100 mg PO BID 02/15/24 02/15/24 History Allergies Allergy/AdvReac Type Severity Reaction Status Date / Time buspirone [From BuSpar] Allergy Hallucinati Verified 10/04/23 00:08 ons methadone Allergy Unknown Verified 10/04/23 00:08 Physical Exam Vitals: Vital Signs Temp Pulse Resp BP Pulse Ox 02/15/24 14:24 98.1 F 88 16 109/75 99 Intake and Output 02/15/24 02/15/24 02/15/24 06:59 14:59 22:59 Other: Weight 108.409 kg Sleep Note - Sleep Data ESS Total: 14 - Sleep Note Sleep Note: Temperature: 98.1 F Pulse Rate: 88 Respiratory Rate: 16 Blood Pressure: 109/75 SpO2: 99 Height: 5 ft 4.5 in Weight: 108.409 kg BMI: Neck Circumference: 14.5
== END ==
LOC: 3 N SLEEP 14:08
PROVIDERS: ATTEND Internal Medicine
DX: G47.33 Obstructive sleep apnea (adult) (pediatric) (principal); G47.10 Hypersomnia, unspecified; E66.9 Obesity, unspecified; Z68.41 Body mass index [BMI] 40.0-44.9, adult; F41.9 Anxiety disorder, unspecified; Z88.8 Allergy status to other drugs, medicaments and biological substances; Z88.5 Allergy status to narcotic agent; Z90.710 Acquired absence of both cervix and uterus
CPT/HCPCS: 99211

== ENCOUNTER 2024-03-18 19:39 | Outpatient (CLI) | payer OTHER ==
--- NOTE | 2024-03-20 12:39 | P.PCN ---
Description of Procedure: POLYSOMNOGRAPHY REPORT PROCEDURE(S)/DATE(S): Polysomnography 03/18/2024 CLINICAL: Patient has been seen in the sleep center for evaluation of obstructive sleep apnea-hypopnea syndrome. Please see my consultation. Sleep study has been done for evaluation of patient breathing during the sleep. PROCEDURE: The standard montage for clinical polysomnography included the electroencephalogram, the electrooculogram, the mentalis surface electromyography and Lead II cardiography. The respiratory battery consisted of measurements of nasal/buccal air flow, pressure transducer measurements from nose, thoracic and/or abdominal effort and intercostal surface electromyography. Video monitoring has been done to check for any parasomnia events. Nocturnal oxyhemoglobin saturations were obtained by finger oximetry. Step-bhagat titration with positive airway pressure was utilized to control the respiratory events, if necessary. RESULTS: During the diagnostic sleep study sleep efficiency was significantly decreased to 67.8%. Latency to sleep onset was significantly prolonged to 44.5 min. Sleep architecture showed stage NI was in very high range of 20.7%, Delta sleep was absent 0%, REM sleep was extremely short 4.9%. Respiratory channel showed 0 obstructive apneas, 0 mixed apneas, 0 central apneas, 15 hypopneas with lowest oxygen level 86%. Total apnea hypopnea index was 3.2. Heart rate was in the range between 81 and 98, average 89. EMG showed 9.3 periodic limb movements per hour with 0.2 micro-arousals per hour. Periodic limb movements have been present during the first hour of sleep, subsequently at that time periodic limb movements index will be significantly hi gher than total. IMPRESSIONS: 1. No significant respiratory abnormalities have been documented during the sleep study. 2. Periodic limb movements have been documented at the beginning of sleep test. 3. Prolonged sleep latency and low sleep efficiency have been documented. 4. Patient present with symptoms of significant excessive daytime sleepiness with [place] Sleepiness Scale significantly increased to 17. Differential diagnosis include possibility of hypersomnia and narcolepsy. Please see other impressions from consultation PLAN: 1. Multiple sleep latency test for objective ablation symptoms of excessive daytime sleepiness. 2. Losing weight program. 3. Sleep hygiene with regular time in bed for at least 7-1/2 hours. 4. No driving if feeling sleepiness. 5. Please check iron profile including ferritin level. Low level of iron may increase the risk for periodic limb movements. Thank you very much for allowing me to participate in the management of your patient. Sincerely, Arturo Platt MD, PhD, FAASM. Diplomat of [employer], Sleep Medicine Board by [employer] Software Database Architect of [facility] [place] cc: Mikayla England MD
== END 2024-03-19 05:40 | disposition home or self-care (01) ==
LOC: 3 N SLEEP 19:39
PROVIDERS: ATTEND Internal Medicine
DX: G47.61 Periodic limb movement disorder (principal); G47.10 Hypersomnia, unspecified; Z88.8 Allergy status to other drugs, medicaments and biological substances
CPT/HCPCS: 95810

== ENCOUNTER 2024-05-18 15:35 | Emergency (ER) | payer OTHER ==
--- NOTE | 2024-05-18 17:50 | ED ---
Nausea/Vomiting/Diarrhea HPI - General Chief complaint: Nausea/Vomiting/Diarrhea Stated complaint: vomiting Time Seen by Provider: 05/18/24 17:48 Source: patient, RN notes reviewed Mode of arrival: ambulatory Limitations: no limitations - History of Present Illness Initial comments: 44-year-old sent by [facility] for nausea/vomiting/diarrhea for 1.5 weeks with associated dizziness and headache. States her and her whole family were diagnosed with influenza 1 week ago. States her family symptoms have all improved however she continues to experience intractable nausea, vomiting, and diarrhea. States she feels extremely dehydrated. She was seen at a different ER earlier this week where they told her she was dehydrated and discharged her. Denies abdominal pain, focal weakness or numbness. Denies chest pain, shortness of breath, or cough. States she was given Compazine at the other ER as this is the only medication that helped her nausea. - Related Data Home Medications Medication Instructions Recorded Confirmed Cyclobenzaprine HCl 7.5 mg PO DAILY 02/15/24 02/15/24 Cyclobenzaprine [Flexeril] 02/15/24 Escitalopram [Lexapro] 20 mg PO DAILY 02/15/24 02/15/24 Meloxicam [Mobic] 15 mg PO DAILY 02/15/24 02/15/24 Prazosin HCl [Minipress] 2 mg PO HS 02/15/24 02/15/24 clonazePAM [KlonoPIN] 1 mg PO BID 02/15/24 02/15/24 lamoTRIgine [LaMICtal] 100 mg PO BID 02/15/24 02/15/24 Previous Rx's Medication Instructions Recorded Cephalexin [Keflex] 500 mg PO Q8HR 7 Days #21 cap 09/05/21 Albuterol Sulfate [Albuterol 1 puff PO Q4-6H #8.5 gm 03/23/23 Sulfate Hfa] predniSONE [Deltasone] 60 mg PO DAILY 5 Days #15 tab 03/23/23 Cephalexin [Keflex] 500 mg PO Q12HR 10 Days #20 cap 10/04/23 Ondansetron Odt [Zofran Odt] 4 mg PO Q8HR PRN #10 tab 05/18/24 Allergies Allergy/AdvReac Type Severity Reaction Status Date / Time buspirone [From BuSpar] Allergy Hallucinati Verified 10/04/23 00:08 ons methadone Allergy Unknown Verified 10/04/23 00:08 Review of Systems ROS Statement: Those systems with pertinent positive or pertinent negative responses have been documented in the HPI. ROS Other: All systems not noted in ROS Statement are negative. Past Medical History Past Medical History: Asthma, Cancer, Diabetes Mellitus, Fibromyalgia, Rheumatoid Arthritis (RA) Additional Past Medical History / Comment(s): HEADACHES History of Any Multi-Drug Resistant Organisms: None Reported Past Surgical History: Cholecystectomy, Hysterectomy, Orthopedic Surgery Past Anesthesia/Blood Transfusion Reactions: No Reported Reaction Past Psychological History: No Psychological Hx Reported, Anxiety, Panic Disorder Smoking Status: Never smoker Past Alcohol Use History: None Reported Past Drug Use History: None Reported - Past Family History Mother Family Medical History: Cancer, Diabetes Mellitus, Hypertension Father Family Medical History: Hypertension General Exam - General Exam Comments Initial Comments: Visual Physical Exam Vital signs reviewed General: Well-appearing, nontoxic, no acute distress. Head: Normocephalic, atraumatic Eyes: PERRLA, EOMI ENT: Airway patent Chest: Nonlabored breathing Skin: No visual rash, normal skin tone Neuro: Alert and oriented 3 Musculoskeletal: No gross abnormalities Limitations: no limitations General appearance: alert, in no apparent distress Head exam: Present: atraumatic, normocephalic, normal inspection Eye exam: Present: normal appearance, PERRL, EOMI. Absent: scleral icterus, conjunctival injection, periorbital swelling ENT exam: Present: normal exam, normal oropharynx, mucous membranes moist Respiratory exam: Present: normal lung sounds bilaterally. Absent: respiratory distress, wheezes, rales, rhonchi, stridor Cardiovascular Exam: Present: regular rate, normal rhythm, normal heart sounds. Absent: systolic murmur, diastolic murmur, rubs, gallop, clicks GI/Abdominal exam: Present: soft, normal bowel sounds. Absent: distended, tenderness, guarding, rebound, rigid Neurological exam: Present: alert, oriented X3 Psychiatric exam: Present: normal affect, normal mood Skin exam: Present: warm, dry, intact, normal color. Absent: rash Course Vital Signs 05/18/24 05/18/24 16:20 21:23 Temperature 97.6 F 99.0 F Pulse Rate 68 97 Respiratory 16 19 Rate Blood Pressure 159/91 O2 Sat by Pulse 99 97 Oximetry Medical Decision Making - Medical Decision Making I completed the quick note portion of this chart signed Amie Giles PA-C was pt. sent in by a medical professional or institution (, [facility], JOINERY MACHINIST, urgent care, hospital, or usp...) When possible be specific @ -No Did you speak to anyone other than the patient for history (EMS, parent, family, police, friend...)? What history was obtained from this source @ -No Did you review nursing and triage notes (agree or disagree)? Why? @ -I reviewed and agree with nursing and triage notes Were old charts reviewed (outside hosp., previous admission, EMS record, old EKG, old radiological studies, urgent care reports/EKG's, usp records)? Report findings @ -No old charts were reviewed Differential Diagnosis (chest pain, altered mental status, abdominal pain women, abdominal pain men, vaginal bleeding, weakness, fever, dyspnea, syncope, headache, dizziness, GI bleed, back pain, seizure, CVA, palpatations, mental health, musculoskeletal)? @ -Differential Appendicitis, Cholecystitis, diverticulosis, ischemic bowel, pancreatitis, hepatitis, UTI, gastroenteritis, AAA, incarcerated hernia, bowel obstruction, constipation, inflammatory bowel, hepatitis, peptic ulcer disease, splenic infarction, perforated viscus, vulvitis, ovarian torsion, PID, kidney stone, placenta abruption, this is not meant to be an all-inclusive list EKG interpreted by me (3pts min.). @ -As above X-rays interpreted by me (1pt min.). @ -None done CT interpreted by me (1pt min.). @ -CT abdomen pelvis reveals hepatic steatosis otherwise no acute process U/S interpreted by me (1pt. min.). @ -None done What testing was considered but not performed or refused? (CT, X-rays, U/S, labs)? Why? @ -None What meds were considered but not given or refused? Why? @ -None Did you discuss the management of the patient with other professionals (prof ramos i.e. [facility] Treadwell, JOINERY MACHINIST, lab, RT, psych nurse, secondary social studies teacher, char dust cleaner and salvager, teacher, family preservation officer, patient case coordinator)? Give summary @ -No Was smoking cessation discussed for >3mins.? @ -No Was critical care preformed (if so, how long)? @ -No Were there social determinants of health that impacted care today? How? (Homelessness, low income, unemployed, alcoholism, drug addiction, transportation, low edu. Level, literacy, decrease access to med. care, mcc, rehab)? @ -No Was there de-escalation of care discussed even if they declined (Discuss DNR or withdrawal of care, Hospice)? DNR status @ -No What co-morbidities impacted this encounter? (DM, HTN, Smoking, COPD, CAD, Cancer, CVA, ARF, Chemo, Hep., AIDS, mental health diagnosis, sleep apnea, morbid obesity)? @ -None Was patient admitted / discharged? Hospital course, mention meds given and route, prescriptions, significant lab abnormalities, going to OR and other pertinent info. @ -Discharge. This is a 44-year-old female presenting for nausea /vomiting/diarrhea x 1.5 weeks. Abdomen soft and nontender. Patient was provided with IV fluids, Compazine, and Ofirmev. Lab work remarkable for hypokalemia at 3.0, lactic acid 2.3, bilirubin 1.7, AST 63, ALT 85. White blood cell count stable at 8.7. EKG reveals sinus bradycardia with no ST changes. Viral swabs were negative. Urinalysis remarkable for 4+ ketones, 1+ protein, contaminated sample not overly indicative of urinary tract infection. CT abdomen pelvis reveals hepatic steatosis otherwise no acute process. Results discussed with patient. Upon reevaluation, patient is requesting more medications for nausea. She is provided with dose of oral potassium and dose of Reglan. I suspect symptoms are due to viral gastroenteritis however advised close follow-up with PCP and GI. Appropriate return precautions discussed. Patient was provided with outpatient prescription of Zofran as needed for nausea. Case was discussed with my ED attending Dr. Riley. Undiagnosed new problem with uncertain prognosis? @ -No Drug Therapy requiring intensive monitoring for toxicity (Heparin, Nitro, Insulin, Cardizem)? @ -No Were any procedures done? @ -No Diagnosis/symptom? @ -Viral gastroenteritis Acute, or Chronic, or Acute on Chronic? @ -Acute Uncomplicated (without systemic symptoms) or Complicated (systemic symptoms)? @ -Complicated Side effects of treatment? @ -No Exacerbation, Progression, or Severe Exacerbation? @ -No Poses a threat to life or bodily function? How? (Chest pain, [place], [place], pneumonia, PE, COPD, DKA, ARF, appy, cholecystitis, CVA, Diverticulitis, Homicidal, Maritza cidal, threat to staff... and all critical care pts) @ -Not at this time - Lab Data Result diagrams: 05/18/24 18:31 05/18/24 18:31 Lab Results 05/18/24 05/18/24 05/18/24 Range/Units 18:31 18:31 18:31 WBC 8.7 (3.8-10.6) k/uL RBC 5.83 H (3.80-5.40) m/uL Hgb 16.4 H (11.4-16.0) gm/dL Hct 47.1 H (34.0-46.0) % MCV 80.8 (80.0-100.0) fL MCH 28.2 (25.0-35.0) pg MCHC 34.9 (31.0-37.0) g/dL RDW 12.6 (11.5-15.5) % Plt Count 245 (150-450) k/uL MPV 9.2 Neutrophils % 50 % Lymphocytes % 37 % Monocytes % 9 % Eosinophils % 0 % Basophils % 1 % Neutrophils # 4.4 (1.3-7.7) k/uL Lymphocytes # 3.2 (1.0-4.8) k/uL Monocytes # 0.8 (0-1.0) k/uL Eosinophils # 0.0 (0-0.7) k/uL Basophils # 0.0 (0-0.2) k/uL Sodium 134 L (137-145) mmol/L Potassium 3.0 L (3.5-5.1) mmol/L Chloride 94 L (98-107) mmol/L Carbon Dioxide 23 (22-30) mmol/L Anion Gap 17 mmol/L BUN 11 (7-17) mg/dL Creatinine 0.70 (0.52-1.04) mg/dL Est GFR (CKD-EPI)AfAm >90 (>60 ml/min/1.73 sqM) Est GFR (CKD-EPI)NonAf >90 (>60 ml/min/1.73 sqM) Glucose 90 (74-99) mg/dL Lactic Ac Sepsis Rflx Plasma Lactic Acid Sonido (0.7-2.0) mmol/L Calcium 9.1 (8.4-10.2) mg/dL Magnesium 2.0 (1.6-2.3) mg/dL Total Bilirubin 1.7 H (0.2-1.3) mg/dL AST 63 H (14-36) U/L ALT 85 H (4-34) U/L Alkaline Phosphatase 75 (38-126) U/L Troponin I (0.000-0.034) ng/mL Total Protein 7.8 (6.3-8.2) g/dL Albumin 4.8 (3.5-5.0) g/dL Lipase 174 (23-300) U/L Urine Color Yellow Urine Appearance Cloudy H (Clear) Urine pH 6.0 (5.0-8.0) Ur Specific [place] 1.030 (1.001-1.035) Urine Protein 1+ H (Negative) Urine Glucose (UA) Negative (Negative) Urine Ketones 4+ H (Negative) Urine Blood Negative (Negative) Urine Nitrite Negative (Negative) Urine Bilirubin Negative (Negative) Urine Urobilinogen 3.0 (<2.0) mg/dL Ur Leukocyte Esterase Small H (Negative) Urine RBC 3 (0-5) /hpf Urine WBC 34 H (0-5) /hpf Ur Squamous Epith Cells 10 H (0-4) /hpf Urine Bacteria Rare H (None) /hpf Urine Mucus Many H (None) /hpf Influenza Type A (PCR) (Not Detectd) Influenza Type B (PCR) (Not Detectd) RSV (PCR) (Not Detectd) SARS-CoV-2 (PCR) (Not Detectd) 05/18/24 05/18/24 05/18/24 Range/Units 18:31 18:31 18:33 WBC (3.8-10.6) k/uL RBC (3.80-5.40) m/uL Hgb (11.4-16.0) gm/dL Hct (34.0-46.0) % MCV (80.0-100.0) fL MCH (25.0-35.0) pg MCHC (31.0-37.0) g/dL RDW (11.5-15.5) % Plt Count (150-450) k/uL MPV Neutrophils % % Lymphocytes % % Monocytes % % Eosinophils % % Basophils % % Neutrophils # (1.3-7.7) k/uL Lymphocytes # (1.0-4.8) k/uL Monocytes # (0-1.0) k/uL Eosinophils # (0-0.7) k/uL Basophils # (0-0.2) k/uL Sodium (137-145) mmol/L Potassium (3.5-5.1) mmol/L Chloride (98-107) mmol/L Carbon Dioxide (22-30) mmol/L Anion Gap mmol/L BUN (7-17) mg/dL Creatinine (0.52-1.04) mg/dL Est GFR (CKD-EPI)AfAm (>60 ml/min/1.73 sqM) Est GFR (CKD-EPI)NonAf (>60 ml/min/1.73 sqM) Glucose (74-99) mg/dL Lactic Ac Sepsis Rflx Plasma Lactic Acid Sonido 2.3 H* (0.7-2.0) mmol/L Calcium (8.4-10.2) mg/dL Magnesium (1.6-2.3) mg/dL Total Bilirubin (0.2-1.3) mg/dL AST (14-36) U/L ALT (4-34) U/L Alkaline Phosphatase (38-126) U/L Troponin I <0.012 (0.000-0.034) ng/mL Total Protein (6.3-8.2) g/dL Albumin (3.5-5.0) g/dL Lipase (23-300) U/L Urine Color Urine Appearance (Clear) Urine pH (5.0-8.0) Ur Specific [place] (1.001-1.035) Urine Protein (Negative) Urine Glucose (UA) (Negative) Urine Ketones (Negative) Urine Blood (Negative) Urine Nitrite (Negative) Urine Bilirubin (Negative) Urine Urobilinogen (<2.0) mg/dL Ur Leukocyte Esterase (Negative) Urine RBC (0-5) /hpf Urine WBC (0-5) /hpf Ur Squamous Epith Cells (0-4) /hpf Urine Bacteria (None) /hpf Urine Mucus (None) /hpf Influenza Type A (PCR) Not Detected (Not Detectd) Influenza Type B (PCR) Not Detected (Not Detectd) RSV (PCR) Not Detected (Not Detectd) SARS-CoV-2 (PCR) Not Detected (Not Detectd) 05/18/24 Range/Units 19:05 WBC (3.8-10.6) k/uL RBC (3.80-5.40) m/uL Hgb (11.4-16.0) gm/dL Hct (34.0-46.0) % MCV (80.0-100.0) fL MCH (25.0-35.0) pg MCHC (31.0-37.0) g/dL RDW (11.5-15.5) % Plt Count (150-450) k/uL MPV Neutrophils % % Lymphocytes % % Monocytes % % Eosinophils % % Basophils % % Neutrophils # (1.3-7.7) k/uL Lymphocytes # (1.0-4.8) k/uL Monocytes # (0-1.0) k/uL Eosinophils # (0-0.7) k/uL Basophils # (0-0.2) k/uL Sodium (137-145) mmol/L Potassium (3.5-5.1) mmol/L Chloride (98-107) mmol/L Carbon Dioxide (22-30) mmol/L Anion Gap mmol/L BUN (7-17) mg/dL Creatinine (0.52-1.04) mg/dL Est GFR (CKD-EPI)AfAm (>60 ml/min/1.73 sqM) Est GFR (CKD-EPI)NonAf (>60 ml/min/1.73 sqM) Glucose (74-99) mg/dL Lactic Ac Sepsis Rflx Y Plasma Lactic Acid Sonido (0.7-2.0) mmol/L Calcium (8.4-10.2) mg/dL Magnesium (1.6-2.3) mg/dL Total Bilirubin (0.2-1.3) mg/dL AST (14-36) U/L ALT (4-34) U/L Alkaline Phosphatase (38-126) U/L Troponin I (0.000-0.034) ng/mL Total Protein (6.3-8.2) g/dL Albumin (3.5-5.0) g/dL Lipase (23-300) U/L Urine Color Urine Appearance (Clear) Urine pH (5.0-8.0) Ur Specific [place] (1.001-1.035) Urine Protein (Negative) Urine Glucose (UA) (Negative) Urine Ketones (Negative) Urine Blood (Negative) Urine Nitrite (Negative) Urine Bilirubin (Negative) Urine Urobilinogen (<2.0) mg/dL Ur Leukocyte Esterase (Negative) Urine RBC (0-5) /hpf Urine WBC (0-5) /hpf Ur Squamous Epith Cells (0-4) /hpf Urine Bacteria (None) /hpf Urine Mucus (None) /hpf Influenza Type A (PCR) (Not Detectd) Influenza Type B (PCR) (Not Detectd) RSV (PCR) (Not Detectd) SARS-CoV-2 (PCR) (Not Detectd) - EKG Data -: EKG Interpreted by Me EKG Comments: EKG reveals sinus bradycardia with no acute ST changes. Ventricular rate 56 bpm, UT interval 130, QRS duration 101, QT/QTc 418/410 Disposition Clinical Impression: Viral gastroenteritis Disposition: HOME SELF-CARE Condition: Stable Instructions (If sedation given, give patient instructions): Gastroenteritis (ED) Additional Instructions: Take Zofran as needed for nausea. Follow-up with your PCP and Dr. Tristan as discussed. Please return to the Emergency Department if symptoms worsen or any other concerns. Prescriptions: Ondansetron Odt [Zofran Odt] 4 mg PO Q8HR PRN #10 tab PRN Reason: Nausea Is patient prescribed a controlled substance at d/c from ED?: No Referrals: Mikayla England MD [Primary Care Provider] - 1-2 days Karina Tristan MD [STAFF PHYSICIAN] - 1-2 days Time of Disposition: 22:05
[2024-05-18 18:47] LABS: Basophils % (A) 1 %; Eosinophils % (A) 0 %; HCT 47.1 % (34.0-46.0); HGB 16.4 gm/dL (11.4-16.0); Lymphocytes # (A) 3.2 k/uL (1.0-4.8); Lymphocytes % (A) 37 %; MCH 28.2 pg (25.0-35.0); MCHC 34.9 g/dL (31.0-37.0); MCV 80.8 fL (80.0-100.0); Mean Platelet Volume 9.2; Monocytes # (A) 0.8 k/uL (0-1.0); Monocytes % (A) 9 %; Neutrophils # (A) 4.4 k/uL (1.3-7.7); Neutrophils % (A) 50 %; Platelet Count 245 k/uL (150-450); RBC 5.83 m/uL (3.80-5.40); RDW 12.6 % (11.5-15.5); WBC 8.7 k/uL (3.8-10.6)
[2024-05-18 18:55] LABS: Appearance,Urine Cloudy (Clear); Bacteria,Urine Rare /hpf; Bilirubin,Urine Negative (Negative); Blood,Urine Negative (Negative); Color,Urine Yellow; Glucose,Urine (UA) Negative (Negative); Ketones,Urine 4+ (Negative); Leukocyte Esterase,Urine Small (Negative); Mucus,Urine Many /hpf; Nitrite,Urine Negative (Negative); Protein,Urine 1+ (Negative); RBC,Urine 3 /hpf (0-5); Squamous Epithelial Cell,Urine 10 /hpf (0-4); WBC,Urine 34 /hpf (0-5)
[2024-05-18] MEDS: ACETAMINOPHEN IV (For NPO) 1,000 MG in EMPTY BAG 1 BAG IVPB STA (18:56)
[2024-05-18] MEDS: SODIUM CHLORIDE 0.9% 1,000 ML IV STA ×2 (18:56→21:34)
[2024-05-18] MEDS: PROCHLORPERAZINE INJ 10 MG/2 ML VIAL IVP STA (18:57)
[2024-05-18 19:01] LABS: ALT 85 U/L (4-34); AST 63 U/L (14-36); African American GFR (CKD) >90 (>60 ml/min/1.73 sqM); Albumin 4.8 g/dL (3.5-5.0); Alkaline Phosphatase 75 U/L (38-126); Anion Gap 17 mmol/L; Blood Urea Nitrogen 11 mg/dL (7-17); Calcium 9.1 mg/dL (8.4-10.2); Carbon Dioxide 23 mmol/L (22-30); Chloride 94 mmol/L (98-107); Glucose 90 mg/dL (74-99); Lipase 174 U/L (23-300); Non-African American GFR(CKD) >90 (>60 ml/min/1.73 sqM); Sodium 134 mmol/L (137-145); Total Bilirubin 1.7 mg/dL (0.2-1.3); Total Protein 7.8 g/dL (6.3-8.2)
[2024-05-18 19:22] LABS: Influenza A Not Detected (Not Detectd); Influenza B Not Detected (Not Detectd); RSV Not Detected (Not Detectd)
--- NOTE | 2024-05-18 21:22 | CT ---
EXAMINATION TYPE: CT abdomen pelvis w con DATE OF EXAM: 05/18/2024 9:11 PM COMPARISON: None. CLINICAL INDICATION: Female, 44 years old with history of abdominal pain; N/V [id number]. TECHNIQUE: Axial CT abdomen pelvis w con;Sagittal and coronal reformats were created on a separate w orkstation. Contrast used:100 ml mL of Isovue 300 with IV Contrast, (none if empty) Oral contrast used: without Oral Contrast (none if empty) CT DLP: 1385.3 mGycm, Automated exposure control for dose reduction was used. FINDINGS: LOWER CHEST: Unremarkable ABDOMEN LIVER: Diffusely hypoattenuating parenchyma. GALLBLADDER AND BILE DUCTS: The gallbladder is surgically absent. PANCREAS: Unremarkable. SPLEEN: Unremarkable. ADRENAL GLANDS: Unremarkable. KIDNEYS AND URETERS: No evidence of hydronephrosis or renal calculus. The ureters are unremarkable. PELVIS BLADDER: No evidence for wall thickening or mass given limitations of exam. REPRODUCTIVE: The uterus is surgically absent. ABDOMEN & PELVIS STOMACH AND BOWEL: No evidence of bowel obstruction. The appendix is not visualized and may be surgic ally absent. PERITONEUM/RETROPERITONEUM: No evidence of pneumoperitoneum or free fluid. VASCULATURE: No evidence of aortic aneurysm. MUSCULOSKELETAL: No acute osseous abnormalities LYMPH NODES: No gross evidence for lymphadenopathy. SOFT TISSUE/ABDOMINAL WALL: Small possible lymph node along the rectus femoris musculature series 201 image 70 measuring 6 mm. Possibly sequela prior surgery. Affecting umbilical hernia. IMPRESSION: No evidence for acute process. Nonvisualization the appendix couldn't for history of appendectomy. No evidence for obstructive uropathy or renal calculus. Hepatic steatosis. [facility], , 05/18/2024 9:20 PM
[2024-05-18 21:37] VITALS: RESP 19
[2024-05-18] MEDS: POTASSIUM CHLORIDE ER 20 MEQ TAB.ER PO STA (21:52)
[2024-05-18] MEDS: METOCLOPRAMIDE 5 MG/ML 2 ML VIAL IVP STA (23:05)
[2024-05-18 23:26] VITALS: BP 148/84; PULSE 86; TEMP 98.9
== END 2024-05-18 23:20 | disposition home or self-care (01) ==
LOC: EC 15:35
DX: A08.4 Viral intestinal infection, unspecified (principal); Z88.8 Allergy status to other drugs, medicaments and biological substances
CPT/HCPCS: 99284; 96365; 96366; 96375; 96361; 36415; 93005; 80053; 83605; 83690; 83735; 84484; 85025; 81001; 87636; 74177; J0780; J2765; J0131; Q9967

== ENCOUNTER → 2024-05-31 | Outpatient (CLI) ==
[2024-05-31 18:15] LABS: HCT 45.8 % (37.2-46.3); HGB 15.1 g/dL (12.0-15.0); MCH 28.2 pg (27.0-32.0); MCV 85.4 FL (80.0-97.0); Mean Platelet Volume 12.6 FL (9.5-12.2); NRBC Per 100 WBC 0 X 10*3/uL (0.00-0.01); Platelet Count 256 X 10*3/uL (140-440); RBC 5.36 X 10*6/uL (4.10-5.20); RDW 13.5 % (11.5-14.5); WBC 7.61 X 10*3/uL (4.50-10.00)
[2024-05-31 18:49] LABS: BUN/Creat Ratio 8.25 Ratio (12.00-20.00); Blood Urea Nitrogen 6.6 mg/dL (9.0-27.0); Chloride 105 mmol/L (96-109); GGT 43 U/L (0-38); Glucose 96 mg/dL (70-110); Potassium 3.6 mmol/L (3.5-5.5); Sodium 142 mmol/L (135-145)
[2024-05-31 18:50] LABS: ALT 203 U/L (8-44); AST 60 U/L (13-35); Albumin/Globulin Ratio 1.67 Ratio (1.60-3.17); Alkaline Phosphatase 63 U/L (41-126); Calcium 9.1 mg/dL (8.7-10.3); Globulin 2.4 g/dL (1.6-3.3); Total Bilirubin 0.4 mg/dL (0.3-1.2); Total Protein 6.4 g/dL (6.2-8.2)
[2024-05-31 18:58] LABS: Hepatitis A Antibody IgM Nonreactive (Nonreactive); Hepatitis B Core IgM Nonreactive (Nonreactive); Hepatitis B Surface Antigen Nonreactive (Nonreactive); Hepatitis C IgG Antibody Nonreactive (Nonreactive)
[2024-05-31 21:52] LABS: HIV 2 AB Non-Reactive (Non-Reactive); HIV AB P24 Non-Reactive (Non-Reactive); HIV P24 AG Non-Reactive (Non-Reactive)
[2024-06-03 13:07] LABS: HSV I IgG Interp Positive (Negative); HSV II IgG Interp Negative (Negative)
== END | disposition home or self-care (01) ==
LOC: LABWHC1 11:06
PROVIDERS: ATTEND Family Medicine
DX: Z11.3 Encounter for screening for infections with a predominantly sexual mode of transmission (principal)
CPT/HCPCS: 36415; 80053; 80074; 82977; 83605; 85027; 86695; 86696; 86780; 87390; 87529

== ENCOUNTER → 2024-07-01 | Outpatient (CLI) | payer OTHER ==
--- NOTE | 2024-07-01 08:28 | MM ---
Reason for Exam: Screening (asymptomatic). Baseline mammogram. Patient History: Menarche at age 11. First Full-Term at age 13. Left ovary removed at age 29. Hysterectomy at age 29. Perimenopausal. Maternal grandmother had breast cancer. Maternal grandmother (great) had breast cancer. Maternal aunt had breast cancer. Mother had breast cancer under age 50. Risk Values: Maday 5 year model risk: 1.5%. NCI Lifetime model risk: 17.1%. Prior Study Comparison: Patient's first Mammogram. Tissue Density: There are scattered areas of fibroglandular density. Findings: Analyzed By CAD. There is no suspicious group of microcalcifications or new suspicious mass in either breast. Overall Assessment: Negative, BI-RAD 1 Management: Screening Mammogram of both breasts in 1 year. . Patient should continue monthly self-breast exams. A clinical breast exam by your physician is recommended on an annual basis. This exam should not preclude additional follow-up of suspicious palpable abnormalities. Note on Maday scores and lifetime risk: 1. A Maday score greater than 3% is considered moderate risk. If this is the case, consider specialist referral to assess eligibility for a risk reducing agent. 2. If overall lifetime risk for the development of breast cancer is 20% or higher, the patient may qualify for future screening with alternating mammogram and breast MRI. [facility], , 07/01/2024 8:26 AM. Electronically signed and approved by: Patrick Jaquez M.D.
== END | disposition home or self-care (01) ==
LOC: RADMAMWWP 07:22
PROVIDERS: ATTEND Family Medicine
DX: Z12.31 Encounter for screening mammogram for malignant neoplasm of breast (principal); R92.323 Mammographic fibroglandular density, bilateral breasts; Z80.3 Family history of malignant neoplasm of breast
CPT/HCPCS: 77063; 77067

== ENCOUNTER → 2024-07-01 | Outpatient (CLI) | payer OTHER ==
--- NOTE | 2024-07-01 09:15 | US ---
EXAMINATION TYPE: US liver DATE OF EXAM: 07/01/2024 COMPARISON: 05/18/2024 CLINICAL INDICATION: Female, 44 years old with history of R94.5 ABNORMAL LIVER FUNCTION TEST; Hx chol ecystectomy TECHNIQUE: Grayscale and color Doppler imaging of the right upper quadrant. FINDINGS: EXAM MEASUREMENTS: Liver Length: 17.0 cm Gallbladder: Surgically absent CBD: 0.71 cm, color Doppler imaging was utilized to isolate the common bile duct for measurement. Right Kidney: 10.6 x 6.0 x 4.5 cm LOGISTICS ASSISTANT NOTES: *Exam is limited due to gas. Pancreas: Pancreatic tail obscured by bowel gas shadowing. Liver: Borderline enlarged. Mildly echogenic. There is a vague hypoechoicoic area seen within the ri ght lobe: 2.4 x 2.3 x 1.2 cm., Probably some focal fatty sparing, short interval follow-up can be per formed to reassess. Gallbladder: Surgically absent Evidence for sonographic Zavala's sign: No CBD: Mildly dilated. Right Kidney: No hydronephrosis or masses seen IMPRESSION: 1. Mildly dilated bile duct at 7.1 mm, probably due to postcholecystectomy status. Correlate with alk brittaney phosphatase and bilirubin levels. 2. Borderline hepatomegaly at 17.0 cm with mild hepatic steatosis. 3. A vague 2.4 cm hypoechoic area in the right liver lobe could represent some focal fatty sparing. R ecommend 6 month follow-up ultrasound to reassess. [facility], , 07/01/2024 9:12 AM
== END | disposition home or self-care (01) ==
LOC: RADUSWWP 07:25
PROVIDERS: ATTEND Family Medicine
DX: K83.8 Other specified diseases of biliary tract (principal); K76.0 Fatty (change of) liver, not elsewhere classified; R94.5 Abnormal results of liver function studies; K76.89 Other specified diseases of liver
CPT/HCPCS: 76705

== ENCOUNTER 2024-08-26 19:57 | Outpatient (CLI) | payer OTHER ==
[2024-08-27 18:27] LABS: Urine Alcohol Negative (Negative); Urine Barbiturate Negative (Negative); Urine Cocaine Negative (Negative); Urine Methadone Negative (Negative); Urine Opiates Negative (Negative); Urine Phencyclidine Negative (Negative)
--- NOTE | 2024-08-29 10:11 | P.PCN ---
Description of Procedure: POLYSOMNOGRAPHY AND MSLT REPORT PROCEDURE(S)/DATE(S): Polysomnography 08/26/2024, MSLT 08/27/2024 CLINICAL: Patient has been seen in the sleep center for evaluation of obstructive sleep apnea-hypopnea syndrome. Please see my consultation. Sleep study has been done for evaluation of patient breathing during the sleep. PROCEDURE: The standard montage for clinical polysomnography included the electroencephalogram, the electrooculogram, the mentalis surface electromyography and Lead II cardiography. The respiratory battery consisted of measurements of nasal/buccal air flow, pressure transducer measurements from nose, thoracic and/or abdominal effort and intercostal surface electromyography. Video monitoring has been done to check for any parasomnia events. Nocturnal oxyhemoglobin saturations were obtained by finger oximetry. Step-bhagat titration with positive airway pressure was utilized to control the respiratory events, if necessary. RESULTS: During the diagnostic sleep study sleep efficiency was normal 90.3%. Latency to sleep onset was normal at 26.5 min. Sleep architecture showed stage NI was extremely short 0.6%, Delta sleep was normal 11.7%, REM sleep was short 14.4%. Respiratory channel showed 1 obstructive apneas, 0 mixed apneas, 2 central apneas, 18 hypopneas with lowest oxygen level 87%. Total apnea hypopnea index was 2.8. Heart rate was in the range between 66 and 79, every 72. EMG showed 0 periodic limb movements per hour. Multiple sleep latency test have been done on the following day, consisted from 5 naps. Patient fell asleep only on 2 naps. Mean sleep latency was 16.6 minutes. No sleep onset REM periods were documented. IMPRESSIONS: 1. No significant respiratory abnormalities have been documented during polysomnogram. 2. No significant periodic limb movements have been documented. 3. Multiple sleep latency test did not confirm pathological sleepiness. Please see other impressions from consultation PLAN: 1. I will see patient for follow-up visit to explain results of the tests and recommendations. 2. Losing weight program. 3. Sleep hygiene with regular time in bed for at least 7-1/2 hours. 4. No driving if feeling sleepiness. Thank you very much for allowing me to participate in the management of your p atient. Sincerely, Arturo Platt MD, PhD, FAASM. Diplomat of [place] [employer], Sleep Medicine Board by [place] [employer] Director of [facility] [place] cc: Rebecca Quinonez
== END 2024-08-27 17:15 | disposition home or self-care (01) ==
LOC: 3 N SLEEP 19:57
PROVIDERS: ATTEND Internal Medicine
DX: G47.33 Obstructive sleep apnea (adult) (pediatric) (principal); Z88.5 Allergy status to narcotic agent; Z88.8 Allergy status to other drugs, medicaments and biological substances
CPT/HCPCS: 80306; 95805; 95810